=== PATIENT | female | born 1950 | race Two or more races ===

== ENCOUNTER 2021-11-13 19:27 | Emergency (ER) | payer MEDICARE ==
[~2021-11-13] VITALS: Ht 152.4 cm; Wt 79.4 kg
[2021-11-13 20:10] VITALS: BP 176/88
== END 2021-11-13 20:57 | disposition left against medical advice (07) ==
LOC: ER 19:27
DX: R13.10 Dysphagia, unspecified (principal); Z53.21 Procedure and treatment not carried out due to patient leaving prior to being seen by health care provider